=== PATIENT | female | born 1980 | race Caucasian/White ===

== ENCOUNTER 2017-10-12 12:21 | Emergency (ER) | payer OTHER ==
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
[2017-10-12] MEDS ORDERED: KETOROLAC 60 MG/2 ML VIAL. IM ONE ×2 (13:38→13:45)
[2017-10-12] MEDS ORDERED: IBUP800T19 PO (14:08)
[2017-10-12 14:55] VITALS: BP 103/65
== END 2017-10-12 14:55 | disposition home or self-care (01) ==
LOC: ER 12:21
DX: S20.212A Contusion of left front wall of thorax, initial encounter (principal); S20.211A Contusion of right front wall of thorax, initial encounter; F17.210 Nicotine dependence, cigarettes, uncomplicated; Z71.6 Tobacco abuse counseling; V43.52XA Car driver injured in collision with other type car in traffic accident, initial encounter; Y93.I9 Activity, other involving external motion; Y92.488 Other paved roadways as the place of occurrence of the external cause; Y99.8 Other external cause status
CPT/HCPCS: 71046; 71120; 96372; 99284; J1885